=== PATIENT | female | born 1965 ===

== ENCOUNTER 2018-03-07 19:12 | Emergency (ER) | payer OTHER ==
[~2018-03-07] VITALS: Ht 157.5 cm; Wt 57.6 kg
[~2018-03-07 19:12] MED LIST: PREVACID30 MG PO; PROVENTIL INH; SYMBICORT 16010.2 GM IH; [UNRECOGNIZED DRUG - OTHER]; [UNRECOGNIZED DRUG - OTHER]
[2018-03-07] MEDS ORDERED: XOPENEX HFA15 GM (20:10)
[2018-03-07] MEDS ORDERED: SINGULAIR10 MG (20:10)
== END 2018-03-07 21:48 | disposition home or self-care (01) ==
LOC: ER 19:12
DX: B34.9 Viral infection, unspecified (principal)

== ENCOUNTER 2018-10-09 14:17 | Emergency (ER) | payer OTHER ==
[~2018-10-09] VITALS: Ht 157.5 cm; Wt 57.2 kg
[~2018-10-09 14:17] MED LIST changes: +SINGULAIR10 MG; +XOPENEX HFA15 GM
[2018-10-09] MEDS ORDERED: MECLIZINE HCL25 MG PO (22:48)
[2018-10-09] MEDS ORDERED: METOCLOPRAMIDE10 MG PO (22:48)
== END 2018-10-10 00:01 | disposition home or self-care (01) ==
LOC: ER 14:17
DX: H81.13 Benign paroxysmal vertigo, bilateral (principal); R11.11 Vomiting without nausea

== ENCOUNTER 2020-07-27 16:00 | Emergency (ER) | payer OTHER ==
[~2020-07-27] VITALS: Ht 157.5 cm; Wt 59.0 kg
[~2020-07-27 16:00] MED LIST changes: +MECLIZINE HCL25 MG PO; +METOCLOPRAMIDE10 MG PO
== END 2020-07-27 22:51 | disposition home or self-care (01) ==
LOC: ER 16:00
DX: J45.998 Other asthma (principal); F06.4 Anxiety disorder due to known physiological condition; Z03.818 Encounter for observation for suspected exposure to other biological agents ruled out